=== PATIENT | female | born 1950 | race Caucasian/White ===

== ENCOUNTER 2019-08-11 06:54 | Emergency (ER) | payer MEDICARE ==
[~2019-08-11] VITALS: Ht 167.6 cm; Wt 85.0 kg
[2019-08-11] MEDS ORDERED: LORazepam 1MG TABLET PO ONE (07:30)
--- NOTE | 2019-08-11 07:40 | NUR ---
PT HERE WITH MULTIPLE COMPLAINTS, PT STATES SHE THINKS SHE HAS STAFF ON HER FACE, IN THREE PLACES PT WITH RED PIMPLE LOOKING MITCHELL. PT ALSO STATES SHE HAD CP FOR A 20 MIN PERIOD YESTERDAY, SHE DENIES CP AT THIS TIME ALTHOUGH STATES SHE WANTS TO GET IT CHECKED OUT
[2019-08-11 07:55] LABS: BASOPHILS # (AUTO) 0.05 x10^3/uL (0-0.1); BASOPHILS % (AUTO) 1 % (0-1); EOSINOPHILS # (AUTO) 0.11 x10^3/uL (0-0.4); EOSINOPHILS % (AUTO) 2 % (1-7); LYMPHOCYTES # (AUTO) 1.25 x10^3/uL (1-3.4); LYMPHOCYTES % (AUTO) 21 % (22-44); MD NO; MEAN CORPUSCULAR HEMOGLOBIN 27.2 pg (27.0-34.8); MEAN CORPUSCULAR HGB CONC 32.6 g/dL (32.4-35.8); MEAN CORPUSCULAR VOLUME 83.3 fL (80-100); MEAN PLATELET VOLUME 7.9 fL (7.4-10.4); MONOCYTES # (AUTO) 0.34 x10^3/uL (0.2-0.8); MONOCYTES % (AUTO) 6 % (2-9); NEUTROPHILS % (AUTO) 71 % (42-75); PLATELET COUNT 280 x10^3/uL (130-400); RED BLOOD COUNT 4.96 x10^6/uL (3.82-5.3); RED CELL DISTRIBUTION WIDTH 14.6 % (9.6-15.2)
[2019-08-11 08:05] LABS: ALBUMIN 3.3 g/dL (3.4-5.0); ANION GAP 8 mmol/L (5-15); CALCIUM 8.5 mg/dL (8.5-10.1); CHLORIDE 110 mmol/L (98-107)
[2019-08-11 08:09] LABS: TROPONIN I < 0.015 ng/mL (0.000-0.045)
[2019-08-11 08:39] VITALS: BP 130/75
[2019-08-11] MEDS ORDERED: MUPIROCIN OINT 2%, 22GM TP SCH (09:00)
[2019-08-11] MEDS ORDERED: LORazepam 1MG TABLET ONE (09:13)
== END 2019-08-11 09:34 | disposition home or self-care (01) ==
LOC: ED 09:00
DX: R21 Rash and other nonspecific skin eruption (principal); F41.1 Generalized anxiety disorder
CPT/HCPCS: 36415; 71045; 80048; 82040; 84484; 85025; 93005; 99284